=== PATIENT | female | born 1960 | race Caucasian/White ===

== ENCOUNTER 2018-07-26 07:53 | Emergency (ER) | payer SELFPAY ==
[2018-07-26 07:55] VITALS: BP 150/71; PULSE 84; RESP 12; TEMP 36.6; O2SAT 96; BMI 25.3
--- NOTE | 2018-07-26 08:32 | CT_ITS ---
STUDY: CT ABDOMEN AND PELVIS WITH CONTRAST REASON FOR EXAM: Female, 57 years old. Right upper quadrant pain. Nausea. RADIATION DOSAGE (If Supplied By Facility): CTDIvol = ( 11.39 ) mGy, DLP = ( 463.63 ) mGycm TECHNIQUE: Transaxial images were obtained from the dome of the diaphragm to the symphysis pubis without oral contrast. Isovue 300 100 IV was administered. Sagittal and coronal images were reconstructed. Individualized dose optimization techniques were used for this CT. COMPARISON: Comparison is made with prior examination dated November 21, 2013. FINDINGS: The visualized lung bases are unremarkable. The visualized portions of the heart are within normal limits. Stable 1.9 cm cyst in the right lobe of the liver. Normal gallbladder and extrahepatic biliary system. Normal spleen. Normal pancreas. There is a small, circumscribed, smooth, low attenuation left adrenal mass, consistent with an adrenal adenoma. This measures 1.5 cm. Normal right adrenal gland. Normal right kidney. Normal left kidney. Normal visualized stomach. Normal small intestine. Diverticula are also seen in the transverse colon. Mild increased markings in the surrounding peritoneal fat in the region of the transverse mesocolon. This may represent a mild degree of the diverticulitis at that site. There are multiple sigmoid diverticula consistent with diverticulosis. The appendix is visualized and appears normal. Normal abdominal aorta. Normal inferior vena cava. There is borderline retroperitoneal lymphadenopathy with enlarged nodes no greater than 10mm in the short axis diameter. Normal urinary bladder. There is absence of the uterus consistent with a prior hysterectomy. There is a small umbilical hernia containing fat. Normal osseous structures. CT/Abdomen/Pelvis W IV Cont ONLY IMPRESSION: Stable right hepatic cyst. Diverticula are seen in the region of the transverse colon with increased markings in the mesenteric fat suggestive of diverticulitis at that site. Electronically Signed: Dc Dotson, at 10:46 EST , Service support ,
--- NOTE | 2018-07-26 08:33 | ED.VISSUMM ---
- ER Visit Summary Date of Service: 07/26/18 Chief Complaint: Right flank pain History of Present Illness: The patient is a 57 F reported history of ulcerative colitis. Prior hysterectomy. Patient states since last evening she gradual onset of sharp stabbing right flank pain along her side underneath her rib cage. Denies any trauma. No fever. She does have nausea but no vomiting or diarrhea. No dysuria or melena. Nothing specifically makes the pain better or worse. It is not associated with food. She said she had this pain before but the last time she had it was around 15 years ago. She is never had any history of gallbladder disease nor any kidney stones. Physical Examination: Middle-aged female no acute distress. Vital signs are stable and afebrile. H EENT exam unremarkable. Neck nontender. Lungs clear to auscultation bilaterally. Heart regular rhythm no murmur. Abdomen is soft. She is tender on the right flank and mildly in the right upper quadrant. No Byrnes sign. No McBurney's point tenderness at all. There is no right lower quadrant tenderness. Left side of her abdomen is nontender. Nondistended normal bowel sounds no peritoneal signs. No hernias or masses. No signs of obstruction. No signs of trauma. She is moving all 4 extremities. Neurovascular intact. Back is nontender. Neurologically she is awake alert with no focal motor deficits. Test Results: UA: 0.5. Hemoglobin 14. No bands. Chemistries unremarkable normal creatinine gap. Liver enzymes normal. Lipase normal. UA macro is negative waiting for the micro. No nitrites. CT abdomen pelvis IV contrast shows transverse diverticulitis. Stable right hepatic cyst. Appendix is seen and normal. Discussed all test results with the patient and her significant other in the room. Emergency Department Course and Treatment: Patient was offered but did not want anything for pain or nausea at this time. Her prior history was secondary to colitis or ulcerative colitis. She will undergo a CT and the appropriate labs. She will receive a liter of normal saline. Treatment Plan: First dose of Cipro and Flagyl p.o. here in the ER. 10 days of each. Chayae has no primary care physician she will be referred to Dr. Luna. Disposition: dc Impression: Acute right upper quadrant abdominal pain secondary to transverse diverticulitis This note was generated with [employer] software. It may contain incorrect words, spelling, and punctuation that were not noted in review of the chart prior to signing ED Disposition - Plan for ED Patient: Referrals: Sara Cain MD [STAFF PHYSICIAN] -
[2018-07-26 09:06] VITALS: BP 139/62; PULSE 84; RESP 16; O2SAT 98
[2018-07-26] MEDS: 0.9% Normal Saline 1,000 ML 1000 ML IV (09:06)
[2018-07-26 09:07] LABS: Absolute Lymphocyte Count 2.08 X10^3/ul (0.83-4.51); Absolute Neutrophil Count 8.9 X10^3/uL (2.0-7.7); Basophil# 0.02 X10^3/uL; Basophil% 0.2 % (0-1); Eosinophil# 0.05 X10^3/uL; Eosinophils% 0.4 % (0-5); Hematocrit 46.1 % (37-47); Hemoglobin 14.5 g/dl (12.0-15.0); Lymphocyte # 2.08 X10^3/ul (4.0); Mean Corp Hgb Conc 31.5 g/gl (32-36); Mean Corpuscular Hgb 28.9 pg (27.0-32.0); Mean Corpuscular Volume 91.8 fL (81-99); Mean Platelet Vol. 9.8 fl (6.2-12.0); Monocyte# 0.45 X10^3/uL; Monocyte% 3.9 % (0-10); Neutrophil # 8.91 X10^3/uL (2.7-7.7); Neutrophil % 77.3 % (47-70); Platelet Count 299 K/mm3 (150-450); RBC Distribution Width CV 14.5 % (11.6-14.6); RBC Distribution Width SD 48.9 fl (35.1-43.9); Red Blood Count 5.02 M/mm3 (4.2-5.4); White Blood Count 11.5 K/mm3 (4.4-11.0)
[2018-07-26 09:13] LABS: POSITIVE COUNT NO; POSITIVE DIFFERENTIAL NO; POSITIVE MORPHOLOGY NO
[2018-07-26 09:18] LABS: AST(SGOT) 17 U/L (15-37); Alanine Aminotransfer ALT/SGPT 20 U/L (13-56); Albumin, Serum 4.1 g/dL (3.2-5.0); Alkaline Phosphatase 76 U/L (45-117); Anion Gap 5 (5-15); BUN 14 mg/dL (7-18); BUN/Creat Ratio 20.3 RATIO (10-20); Bilirubin, Direct 0.14 mg/dL (0.00-0.30); Calcium,Total 8.8 mg/dL (8.5-10.1); Chloride 108 mmol/L (98-107); Creatinine, Serum 0.69 mg/dL (0.55-1.02); EST Glomerular Filtration Rate 93 mL/min (>60); Est Glom Filt Rate - Afr Amer 113 mL/min (>60); Estimated Creatinine Clearance 80.95 ml/min; Globulin 4.1 g/dL (2.2-4.2); Glucose 89 mg/dL (74-106); Lipase 111 U/L (73-393); Potassium 3.7 mmol/L (3.5-5.1); Protein, Total 8.2 g/dL (6.4-8.2); Sodium Level 140 mmol/L (136-145)
[2018-07-26 10:40] LABS: Bacteria 0 SEEN /hpf (None Seen); Mucous, Urine 0 SEEN /hpf (<or=2+); Red Blood Cells-Urine 0 SEEN /hpf (0-5)
[2018-07-26 10:43] LABS: Color, Urine Yellow (Yellow); Glucose, Dipstick Normal (Normal); Ketone-Dipstick Negative (Negative); Leukocyte Esterase-Dipstick 25 /ul (Negative); Nitrite-Dipstick Negative (Negative); Occult Blood-Urine Negative /ul (Negative); Protein-Dipstick Negative (Negative); Urine Bilirubin Dipstick Negative (Negative); Urine Clarity Sl. Cloudy (Clear); Urine Urobilinogen Normal (Normal); Urine pH 6.5 (5.0 - 8.0)
--- NOTE | 2018-07-26 10:54 | ED.DEP ---
ED Disposition - Plan for ED Patient: Disposition: Home or Assisted Living Instructions: ED Diverticulitis Prescriptions: Ciprofloxacin [Cipro] 500 mg PO BID #20 tab Metronidazole [Flagyl] 500 mg PO Q6H #40 tab Referrals: Zach Luna MD [STAFF PHYSICIAN] - 3-5 Days Additional Instructions: And Motrin for pain. Cipro 1 pill twice a day for 10 days. Flagyl 1 pill 4 times a day for 10 days. Do not drink any alcohol while using the Flagyl. Follow-up with Dr. Zach Luna for a local primary care physician or return to the ER if you are feeling worse.
[2018-07-26 10:55] LABS: Squamous Epithelial Cells - UA 0-5 SEEN /hpf (5-10); White Blood Cells 0-5 SEEN /hpf (0-5)
[2018-07-26] MEDS: metroNIDAZOLE 500 MG Tablet PO (11:12)
[2018-07-26] MEDS: Ondansetron 4 MG/2 ML Vial IV (11:12)
[2018-07-26] MEDS: Ketorolac 30 MG/ML Syringe IV (11:12)
[2018-07-26] MEDS: Ciprofloxacin 250 MG Tablet 500 MG PO (11:18)
[2018-07-26 11:21] VITALS: BP 133/74; PULSE 62; RESP 15; O2SAT 98
== END 2018-07-26 11:25 | disposition home or self-care (01) ==
PROVIDERS: Emergency Provider Emergency Medicine
DX: K57.32 Diverticulitis of large intestine without perforation or abscess without bleeding (principal); R10.11 Right upper quadrant pain; Z72.0 Tobacco use
CPT/HCPCS: 74177; 80048; 80076; 81001; 83690; 85025; 96361; 96374; 96375; 99285; J7030; Q9967; A4216; J2405

== ENCOUNTER → 2018-07-29 14:39 | Outpatient (CLI) | payer SELFPAY ==
[2018-07-26 07:55] VITALS: BMI 25.3
[2018-07-29 16:43] LABS: T4 Free Direct 0.72 ng/dL (0.76-1.46); Thyroid Stim Hormone (TSH) 7.98 uIU/mL (0.358-3.74)
[2018-08-08 09:07] LABS: Anti-Thyroglobulin AB 48.2 IU/mL (0.0-0.9); Thyroglobulin RIA 15 ng/mL (.); Thyroid Peroxidase AB 224 IU/mL (0-34)
== END ==
LOC: MFPLAB 14:40
PROVIDERS: Family Provider Family Medicine; PCP Family Medicine; Referring Provider Family Medicine; Visit Provider Family Medicine
DX: E03.9 Hypothyroidism, unspecified (principal)
CPT/HCPCS: 36415; 84432; 84439; 84443; 86376; 86800

== ENCOUNTER 2018-07-31 06:17 | Observation (INO) | payer SELFPAY ==
[2018-07-31 06:19] VITALS: BP 160/78; PULSE 56; RESP 14; TEMP 36.4; O2SAT 98; BMI 29.5
--- NOTE | 2018-07-31 06:31 | CT_ITS ---
STUDY: CT ABDOMEN AND PELVIS WITH CONTRAST REASON FOR EXAM: Female, 57 years old. Diverticulitis RADIATION DOSAGE (If Supplied By Facility): CTDIvol = ( 15.09 ) mGy, DLP = ( 871.60 ) mGycm TECHNIQUE: Transaxial images were obtained from the dome of the diaphragm to the symphysis pubis without oral contrast. Isovue 300 100ML IV was administered. Sagittal and coronal images were reconstructed. Individualized dose optimization techniques were used for this CT. COMPARISON: 07/26/2018 FINDINGS: The visualized lung bases are unremarkable. The visualized portions of the heart are within normal limits. Hepatomegaly. Normal gallbladder and extrahepatic biliary system. Normal spleen. Normal pancreas. Stable left adrenal adenomas. Normal right kidney. Normal left kidney. Normal visualized stomach. Normal small intestine. There are multiple colonic diverticula consistent with diverticulosis. Constipation. The appendix is visualized and appears normal. Normal abdominal aorta. Normal inferior vena cava. Normal retroperitoneum. Normal urinary bladder. Normal abdominal wall. Normal osseous structures. CT/Abdomen/Pelvis W IV Cont ONLY IMPRESSION: No evidence of acute intestinal pathology or acute obstructive uropathy. No evidence of acute diverticulitis. Constipation. Electronically Signed: Jamal Mackay MD at 7:39 EST Tel , Service support ,
[2018-07-31] MEDS: Ondansetron 4 MG/2 ML Vial IV (06:40)
[2018-07-31] MEDS: 0.9% Normal Saline 1,000 ML 1000 ML IV (06:40)
[2018-07-31 06:41] LABS: Absolute Lymphocyte Count 1.86 X10^3/ul (0.83-4.51); Absolute Neutrophil Count 8.3 X10^3/uL (2.0-7.7); Basophil# 0.04 X10^3/uL; Basophil% 0.4 % (0-1); Eosinophil# 0.23 X10^3/uL; Eosinophils% 2.1 % (0-5); Hematocrit 44.3 % (37-47); Lymphocyte # 1.86 X10^3/ul (4.0); Lymphocyte % 16.7 % (19-41); Mean Corp Hgb Conc 31.6 g/gl (32-36); Mean Corpuscular Hgb 29.2 pg (27.0-32.0); Mean Corpuscular Volume 92.5 fL (81-99); Mean Platelet Vol. 10.2 fl (6.2-12.0); Monocyte# 0.72 X10^3/uL; Monocyte% 6.4 % (0-10); Neutrophil % 74.2 % (47-70); Platelet Count 294 K/mm3 (150-450); RBC Distribution Width CV 14.6 % (11.6-14.6); RBC Distribution Width SD 48.1 fl (35.1-43.9); Red Blood Count 4.79 M/mm3 (4.2-5.4); White Blood Count 11.2 K/mm3 (4.4-11.0)
[2018-07-31] MEDS: Morphine 4 MG/ML Syringe IV ×2 (06:41→07:18)
[2018-07-31 06:44] LABS: POSITIVE COUNT NO; POSITIVE DIFFERENTIAL NO; POSITIVE MORPHOLOGY NO
[2018-07-31 06:49] LABS: Anion Gap 8 (5-15); BUN 11 mg/dL (7-18); Calcium,Total 9.1 mg/dL (8.5-10.1); Chloride 109 mmol/L (98-107); Creatinine, Serum 0.78 mg/dL (0.55-1.02); EST Glomerular Filtration Rate 80 mL/min (>60); Est Glom Filt Rate - Afr Amer 97 mL/min (>60); Estimated Creatinine Clearance 60.05 ml/min; Glucose 104 mg/dL (74-106); Sodium Level 143 mmol/L (136-145)
--- NOTE | 2018-07-31 06:54 | ED.VISSUMM ---
- ER Visit Summary Date of Service: 07/31/18 Chief Complaint: Abdominal and flank pain History of Present Illness: The patient is a 57 F who presents with abdominal and flank pain. Patient has had pain in the right upper quadrant and flank for 1 week. She was seen in the emergency department [address] imaging showed transverse diverticulitis. She was discharged on Cipro and Flagyl. She had transient improvement in symptoms and actually felt pretty good yesterday. However about 3 hours before presentation here her pain acutely worsened. She reports nausea without vomiting. She also developed some watery diarrhea this morning. No fevers. Physical Examination: Afebrile vitals unremarkable Patient does appear uncomfortable Moist mucous membranes Heart regular rate and rhythm Lungs are clear The abdomen is soft but she is tender to palpation in the right upper quadrant there is no guarding there is no rebound Alert Test Results: Labs notable for white blood cell count 11.2. CT of the abdomen and pelvis is pending at the time of this dictation. Emergency Department Course and Treatment: Patient was recently diagnosed with transverse diverticulitis and had acute worsening of pain at this morning. I am concerned for possible complications including perforation. At the time of this dictation CT is pending. Patient will be signed out to the oncoming physician for follow-up on this result. Patient was given IV morphine and Zofran here. On reevaluation she does have moderate improvement but still complains of 6 out of 10 pain and was given a second dose of morphine. Treatment Plan: [] Disposition: [] Impression: [] This note was generated with [employer] dictation software. It may contain incorrect words, spelling, and punctuation that were not noted in review of the chart prior to signing <Lb Lozoya - Last Filed: 07/31/18 06:54> - ER Visit Summary Date of Service: 07/31/18 Chief Complaint: [] History of Present Illness: The patient is a 57 F [] Physical Examination: [] Test Results: [] Emergency Department Course and Treatment: Patient was signed out to me pending CAT scan. It shows constipation with no evidence of free air or perforation. There is no signs of diverticulitis. Upon reevaluation she is still having pain even after the second dose of morphine. Patient states that she is unable to go home. I feel she is able to be admitted to observation. I discussed with hospitalist and with the patient. Patient will be admitted to the hospital under observation status for abdominal pain Treatment Plan: [] Disposition: Admit Impression: Abdominal pain, constipation This note was generated with [employer] dictation software. It may contain incorrect words, spelling, and punctuation that were not noted in review of the chart prior to signing <Eric Marcum - Last Filed: 07/31/18 08:28> ED Disposition <Lb Lozoya - Last Filed: 07/31/18 06:54> <Eric Marcum - Last Filed: 07/31/18 08:28> - Plan for ED Patient: Referrals: Zach Luna MD [Primary Care Provider] -
[2018-07-31 07:46] VITALS: BP 142/74; PULSE 74; RESP 16; O2SAT 96
--- NOTE | 2018-07-31 08:41 | NURSING ---
306 ANISHA ABD PAIN
[2018-07-31 09:08] VITALS: BMI 28.9
[2018-07-31 09:21] VITALS: BP 130/73; PULSE 59; RESP 14; TEMP 36.6; O2SAT 95
[2018-07-31] MEDS: Electrolyte Solution/Peg's 4000 ML 2000 ML PO (11:02)
[2018-07-31] MEDS: 0.9% Normal Saline 1,000 ML 100 ML IV ×2 (11:02→20:25)
--- NOTE | 2018-07-31 11:47 | HP.PCM_ITS ---
Problem List (1) Constipation Status: Acute History of Present Illness Date of Admission: 07/31/18 Chief Complaint: Abdominal pain The patient is a 57 year old F with PMH as below who was recently discharged from the ER with diverticulitis. She was sent home with Cipro/Flagyl for 10 days and has improved significantly up until this morning where she had significant abdominal pain. She has been having loose stools while at home, however when she presented to the ER a CT scan was done that showed significant constipation with fecalization in the small bowel. There does not appear to be any obstruction on the CT scan. Her labs were unremarkable. Of note she has noticed that she has become more distended in her abdomen. Past Medical History Allergies venom-honey bee [bee venom (honey bee)] Allergy (Verified 07/31/18 06:25) Swelling Home Medications: Ambulatory Orders Medication Instructions Recorded Ciprofloxacin [Cipro] 500 mg PO BID #20 tab 07/26/18 Metronidazole [Flagyl] 500 mg PO Q6H #40 tab 07/26/18 Surgical History: - - section 5 Smoking Status: Current some day smoker Tobacco Use: Cigarettes Alcohol: None Drugs: None - *Family History Maternal History Items: No pertinent history Paternal History Items: No pertinent history Review of Systems Constitutional: Denies: Chills, Fever, Weight Change HEENT: Denies: Head Aches, Sinus Congestion, Sinus Drainage Cardiovascular: Denies: Chest Pain, Palpitations Respiratory: Denies: Cough, Shortness of breath at rest, Sputum production Gastrointestinal: Reports: Abdominal Pain, Diarrhea. Denies: Nausea, Vomiting Genitourinary: Denies: Dysuria Musculoskeletal: Denies: Joint Pain, Joint Tenderness Skin: Denies: Rash, Wounds Neurological: Denies: Numbness, Tingling, Focal weakness Psychiatric: Denies: Anxiety, Depression, Homicidal Ideations, Suicidal Ideations Hematologic/ Lymphatic: Denies: Easy Bruising, Easy Bleeding VTE Information - Inpt Only VTE Present on Admission: No Patient Problems: Active and Suspected Problems Constipation (Acute) - Physical Exam General: Alert, Oriented x3, Cooperative, No apparent distress HEENT: Atraumatic, PERRLA, EOMI, Normocephalic Oral: Moist Mucosa Neck: Supple, No JVD, Trachea Midline Lungs: Clear to auscultation, Normal air movement, No rhonchi, No wheeze, No rales Cardiovascular: Regular rate, Regular Rhythm, Normal S1, Normal S2, No murmurs Abdomen: Soft, No Hepato-splenomegaly, Distended - Mild, Tender - Lightly tender Extremities: No edema, Capillary Refill Less than 3 Seconds Skin: No rashes, No breakdown Neurological: Neuro grossly intact, Sensory exam intact to light touch and pain Psych/Mental Status: Normal Affect, Appropriate Vital Signs Temp Pulse Resp BP Pulse Ox 97.8 F 59 L 14 130/73 H 95 07/31/18 09:21 07/31/18 09:21 07/31/18 09:21 07/31/18 09:21 07/31/18 09:21 Oxygen Delivery Method Room Air Weight: 153 lb 0.013 oz Body Mass Index (BMI) 28.9 Laboratory Tests Past 24 Hrs 07/31/18 07/31/18 06:28 06:28 WBC 11.2 H RBC 4.79 Hgb 14.0 Hct 44.3 MCV 92.5 MCH 29.2 MCHC 31.6 L RDW 14.6 RDW Differential 48.1 H Plt Count 294 MPV 10.2 Immature Gran % (Auto) 0.200 Neut % (Auto) 74.2 H Lymph % (Auto) 16.7 L [place] % (Auto) 6.4 Eos % (Auto) 2.1 Baso % (Auto) 0.4 Absolute Neuts (auto) 8.3 H Absolute Lymphs (auto) 1.86 Total Counted Not Reportable Sodium 143 Potassium 4.0 Chloride 109 H Carbon Dioxide 26.0 Anion Gap 8 BUN 11 Creatinine 0.78 Estim Creat Clear Calc 60.05 Est GFR (MDRD) Af Amer 97 Est GFR (MDRD) Non-Af 80 BUN/Creatinine Ratio 14.0 Glucose 104 Calcium 9.1 Assessment/Plan All Active Problems Constipation (Acute) 1. Constipation -Based on her CT scan and her history we will plan to treat with GoLYTELY and MiraLAX -Plan for discharge tomorrow -No narcotics -Tylenol for pain as needed -He is only taken 5 days of her Cipro and Flagyl therefore will continue IV DVT: Heparin Code Visit OBSV E&M: 14647 Initial observation care L2
[2018-07-31] MEDS: Heparin Injection (Vial) 5,000 UNIT/ML VIAL 5000 UNIT SC ×2 (14:54→21:09)
[2018-07-31 15:20] VITALS: BP 136/65; PULSE 68; RESP 16; TEMP 36.6; O2SAT 99
[2018-07-31 20:17] VITALS: BP 122/61; PULSE 72; RESP 16; TEMP 37; O2SAT 95
[2018-07-31] MEDS: Polyethylene Glycol 3350 17 GM PACKET PO (21:09)
[2018-07-31] MEDS: Ciprofloxacin 400 MG/200 ML BAG 200 MG IV (22:23)
[2018-08-01 03:15] VITALS: BP 133/62; PULSE 70; RESP 16; TEMP 36.6; O2SAT 97
[2018-08-01] MEDS: Heparin Injection (Vial) 5,000 UNIT/ML VIAL 5000 UNIT SC (05:14)
[2018-08-01 05:39] LABS: Absolute Lymphocyte Count 1.62 X10^3/ul (0.83-4.51); Absolute Neutrophil Count 8.6 X10^3/uL (2.0-7.7); Basophil# 0.03 X10^3/uL; Basophil% 0.3 % (0-1); Eosinophil# 0.22 X10^3/uL; Hematocrit 42.7 % (37-47); Hemoglobin 13.3 g/dl (12.0-15.0); Lymphocyte # 1.62 X10^3/ul (4.0); Lymphocyte % 14.6 % (19-41); Mean Corp Hgb Conc 31.1 g/gl (32-36); Mean Corpuscular Hgb 29.4 pg (27.0-32.0); Mean Corpuscular Volume 94.5 fL (81-99); Mean Platelet Vol. 10.6 fl (6.2-12.0); Monocyte# 0.64 X10^3/uL; Monocyte% 5.8 % (0-10); Neutrophil # 8.56 X10^3/uL (2.7-7.7); Neutrophil % 77.1 % (47-70); Platelet Count 248 K/mm3 (150-450); RBC Distribution Width CV 14.8 % (11.6-14.6); RBC Distribution Width SD 49.8 fl (35.1-43.9); Red Blood Count 4.52 M/mm3 (4.2-5.4); White Blood Count 11.1 K/mm3 (4.4-11.0)
[2018-08-01 05:44] LABS: POSITIVE COUNT NO; POSITIVE DIFFERENTIAL NO; POSITIVE MORPHOLOGY NO
[2018-08-01 05:49] LABS: Anion Gap 8 (5-15); BUN 10 mg/dL (7-18); BUN/Creat Ratio 15.3 RATIO (10-20); Calcium,Total 8.4 mg/dL (8.5-10.1); Chloride 111 mmol/L (98-107); Creatinine, Serum 0.65 mg/dL (0.55-1.02); EST Glomerular Filtration Rate 99 mL/min (>60); Est Glom Filt Rate - Afr Amer 120 mL/min (>60); Estimated Creatinine Clearance 72.06 ml/min; Glucose 95 mg/dL (74-106); Potassium 4.2 mmol/L (3.5-5.1); Sodium Level 143 mmol/L (136-145)
[2018-08-01 08:00] VITALS: BP 136/74; PULSE 60; RESP 14; TEMP 36.7; O2SAT 94
[2018-08-01] MEDS: Ciprofloxacin 400 MG/200 ML BAG 200 MG IV (09:40)
--- NOTE | 2018-08-01 11:03 | DCINST_ITS ---
- Discharge Diagnoses Current Active Problems: Current Active and Chronic Problems Constipation (Acute) You will use the following diet at home:: Regular Your food should be the consistency of: Regular Your liquids should be the consistency of: Regular/Thin Discharge Activity: Return to Normal Activity, No Restrictions Call your doctor if you observe: Fever of 101 or Higher, Shortness of breath, Dizziness, Fainting spells, Swelling in the ankles, Chest pain, Increased palpitations (irregular heartbeat) Allergies/Adverse Reactions: Allergies venom-honey bee [bee venom (honey bee)] Allergy (Verified 07/31/18 06:25) Swelling Medications to take at Discharge Ciprofloxacin [Cipro] 500 mg PO BID #20 tab 07/26/18 Metronidazole [Flagyl] 500 mg PO Q6H #40 tab 07/26/18 Polyethylene Glycol 3350 [Miralax] 17 gm PO DAILY #12 packet 08/01/18 The following prescriptions were given: Polyethylene Glycol 3350 [Miralax] 17 gm PO DAILY #12 packet Primary Care Physician: Zach Luna MD [Primary Care Provider] - Please follow up with your Primary Care Physician in: 3-5 days Test Results: Test results from this visit will be discussed in further detail at your follow- up appointment, if applicable.
--- NOTE | 2018-08-01 11:07 | DS.PCM_ITS ---
Discharge Date and Diagnosis - Problem List Patient Problems: Active and Suspected Problems Constipation (Acute) Date of Admission: 07/31/18 Date of Discharge: 08/01/18 - Primary Discharge Diagnosis Active and Suspected Problems Constipation (Acute) Hospital Course and Treatment Imaging Results: CT abd/pelvis: IMPRESSION: No evidence of acute intestinal pathology or acute obstructive uropathy. No evidence of acute diverticulitis. Constipation. Consults: None Operations: None Procedures: None Summary of Care Provided: HPI: The patient is a 57 year old F with PMH as below who was recently discharged from the ER with diverticulitis. She was sent home with Cipro/Flagyl for 10 days and has improved significantly up until this morning where she had significant abdominal pain. She has been having loose stools while at home, however when she presented to the ER a CT scan was done that showed significant constipation with fecalization in the small bowel. There does not appear to be any obstruction on the CT scan. Her labs were unremarkable. Of note she has noticed that she has become more distended in her abdomen. Hospital Course: 1. [id number] female with no prior medical history presenting after 5 days of treatment with diverticulitis. She had a CT scan in the ER which was negative for continued diverticulitis however she did have constipation with stool formation in her small bowel. She was initiated on GoLYTELY and MiraLAX and she has had multiple bowel movements and says that her abdominal distention is much improved and her pain has resolved completely. She will be discharged home with MiraLAX daily and she can finish her antibiotics at home for her diverticulitis. Do recommend that she follows up with her primary care doctor in 3-5 days. Patient Problems: Active and Suspected Problems Constipation (Acute) Objective: General: Alert, Oriented x3, Cooperative, No apparent distress HEENT: Atraumatic, PERRLA, EOMI, Normocephalic Oral: Moist Mucosa Neck: Supple, No JVD, Trachea Midline Lungs: Clear to auscultation, Normal air movement, No rhonchi, No wheeze, No rales Cardiovascular: Regular rate, Regular Rhythm, Normal S1, Normal S2, No murmurs Abdomen: Soft, nontender, no Hepato-splenomegaly, non-distended Extremities: No edema, Capillary Refill Less than 3 Seconds Skin: No rashes, No breakdown Neurological: Neuro grossly intact, Sensory exam intact to light touch and pain Psych/Mental Status: Normal Affect, Appropriate - Physical Exam Vital Signs Temp Pulse Resp BP Pulse Ox 98.0 F 60 14 136/74 H 94 08/01/18 08:00 08/01/18 08:00 08/01/18 08:00 08/01/18 08:00 08/01/18 08:00 Oxygen Delivery Method Room Air Weight: 153 lb 0.013 oz Body Mass Index (BMI) 28.9 Intake and Output for Last 24 Hours 07/30/18 07/31/18 08/02/18 23:59 23:59 00:59 Intake Total 2715 / 2715 1332 / 1332 Balance 2715 / 2715 1332 / 1332 Laboratory Tests Past 24 Hrs 08/01/18 08/01/18 05:00 05:00 WBC 11.1 H RBC 4.52 Hgb 13.3 Hct 42.7 MCV 94.5 MCH 29.4 MCHC 31.1 L RDW 14.8 H RDW Differential 49.8 H Plt Count 248 MPV 10.6 Immature Gran % (Auto) 0.200 Neut % (Auto) 77.1 H Lymph % (Auto) 14.6 L [place] % (Auto) 5.8 Eos % (Auto) 2.0 Baso % (Auto) 0.3 Absolute Neuts (auto) 8.6 H Absolute Lymphs (auto) 1.62 Total Counted Not Reportable Sodium 143 Potassium 4.2 Chloride 111 H Carbon Dioxide 24.0 Anion Gap 8 BUN 10 Creatinine 0.65 Estim Creat Clear Calc 72.06 Est GFR (MDRD) Af Amer 120 Est GFR (MDRD) Non-Af 99 BUN/Creatinine Ratio 15.3 Glucose 95 Calcium 8.4 L Discharge Activity: Return to Normal Activity, No Restrictions Call your doctor if you observe: Fever of 101 or Higher, Shortness of breath, Dizziness, Fainting spells, Swelling in the ankles, Chest pain, Increased palpitations (irregular heartbeat) Home Medications: Medications to take at Discharge Ciprofloxacin [Cipro] 500 mg PO BID #20 tab 07/26/18 Metronidazole [Flagyl] 500 mg PO Q6H #40 tab 07/26/18 Polyethylene Glycol 3350 [Miralax] 17 gm PO DAILY #12 packet 08/01/18 Following Prescrptions Were Given to Patient: Polyethylene Glycol 3350 [Miralax] 17 gm PO DAILY #12 packet Primary Care Physician: Zach Luna MD [Primary Care Provider] - Please follow up with your Primary Care Physician in: 3-5 days Disposition: Home Minutes spent on discharge:: 35 Patient Condition:: Good Medical Necessity - Tobacco Use Smoking Status: Current some day smoker Tobacco Use: Cigarettes Meaningful Use Info Meaningful Use Diagnoses (Choose all that apply): None applicable Code Visit OBSV E&M: 52448 Observation care discharge
== END 2018-08-01 12:15 | disposition home or self-care (01) ==
LOC: ED 06:34 → MS3 08-02 08:23
PROVIDERS: Admitting Provider Family Medicine; Emergency Provider Emergency Medicine; Family Provider Family Medicine; PCP Family Medicine; Visit Provider Family Medicine
DX: K59.00 Constipation, unspecified (principal); K57.32 Diverticulitis of large intestine without perforation or abscess without bleeding; F17.210 Nicotine dependence, cigarettes, uncomplicated; K51.90 Ulcerative colitis, unspecified, without complications
CPT/HCPCS: 36415; 74177; 80048; 85025; 96361; 96365; 96366; 96367; 96372; 96375; 96376; 97802; 99218; 99282; J7030; Q9967; A4216; G0378; J0744; J2405

== ENCOUNTER → 2018-08-04 12:53 | Outpatient (CLI) | payer SELFPAY ==
[2018-07-26 07:55] VITALS: BMI 25.3
[2018-07-31 09:08] VITALS: BMI 28.9
--- NOTE | 2018-08-04 13:43 | US_ITS ---
STUDY: THYROID ULTRASOUND REASON FOR EXAM: Female, 57 years old. Nodule. TECHNIQUE: Ultrasound evaluation of the thyroid was performed with real-time and static orr-scale imaging. COMPARISON: None. FINDINGS: RIGHT LOBE: The right lobe of the thyroid gland measures 4.3 x 1.9 x 1.5 cm. There is a heterogeneous echotexture. There is a 1.3 x 0.9 x 1.1 cm isoechoic nodule in the lateral mid thyroid. There is evidence of internal and peripheral vascularity on Doppler imaging. LEFT LOBE: The left lobe of the thyroid gland measures 4.2 x 2.2 x 1.9 cm. There is a heterogeneous echotexture. There are no demonstrated solid, cystic or complex lesions. Normal vascularity on Doppler imaging. ISTHMUS: The isthmus measures 0.4 cm. The regional lymph nodes are normal. US/Thyroid IMPRESSION: Nodule in the right thyroid. Under the ACR TIRADS classification this nodule would be scored as a TR 3, mildly suspicious. It should be followed up in 1, 3 and 5 year intervals. Electronically Signed: Ankit Cutler DO at 16:01 EDT Tel [phone], Service support ,
== END ==
PROVIDERS: Family Provider Family Medicine; PCP Family Medicine; Referring Provider Family Medicine; Visit Provider Family Medicine
DX: E04.1 Nontoxic single thyroid nodule (principal)
CPT/HCPCS: 76536

== ENCOUNTER → 2018-08-06 10:15 | Outpatient (CLI) | payer SELFPAY ==
[2018-07-31 09:08] VITALS: BMI 28.9
[2018-08-15 08:15] LABS: Anti-Thyroglobulin AB 52.5 IU/mL (0.0-0.9); Thyroglobulin RIA 8.4 ng/mL (.); Thyroid Peroxidase AB 269 IU/mL (0-34)
== END ==
LOC: MFPLAB 10:15
PROVIDERS: Family Provider Family Medicine; PCP Family Medicine; Referring Provider Family Medicine; Visit Provider Family Medicine
DX: E03.9 Hypothyroidism, unspecified (principal)
CPT/HCPCS: 36415; 84432; 86376; 86800

== ENCOUNTER → 2018-08-17 11:43 | Outpatient (CLI) | payer SELFPAY ==
[2018-07-31 09:08] VITALS: BMI 28.9
--- NOTE | 2018-08-17 07:30 | ASPS_PTH ---
PATIENT: CASSI SCHMITT LOC: [facility] U#:[id number] AGE/SX: 64/F ROOM: RE08/17/[address]: Dr. Cecil Layne MD : 1960 BED: DIS: SPEC #: [id number] RECD: 08/17/18 11:05 STATUS: ONOFRE TONYA #: [id number] RAYMUNDO: 08/17/18 07:[address]: Cecil Layne DEPT: CYTOLOGY RECD BY: Mercedez Kramer ENTERED: 08/17/18 15:02 SP TYPE: ASPIRATION OTHR DR: Dr. Zach Luna MD Tissues: Thyroid gland, NOS Procedures: Special Stain Group II Cytology Other HEADER OPERATION: Ultrasound-guided fine needle aspiration right thyroid PRE-OP DIAGNOSIS: Uninodular goiter E04.1 TISSUE SUBMITTED: Fine needle aspiration right thyroid 12 slides DIAGNOSIS CYTOLOGY Right thyroid nodule, ultrasound-guided FNA (smears): Consistent with benign follicular nodule. Adequate for evaluation. SJ:nemesio 08/18/18 COMMENT Correlation with clinical, radiologic findings and appropriate follow up are necessary. CYTOLOGY STUDY Slides are reviewed. CYTOLOGY GROSS Received are 12 smears labeled with the patient's name and designated per the requisition as right thyroid. Submitted for staining. / 08/17/18 TC:5 CPT: 48896
== END ==
LOC: LABSPEC 11:44
PROVIDERS: Family Provider Family Medicine; PCP Family Medicine; Referring Provider Surgery; Visit Provider Surgery
DX: E04.1 Nontoxic single thyroid nodule (principal)
CPT/HCPCS: 88161; 88313

== ENCOUNTER → 2018-11-09 | Outpatient (CLI) | payer SELFPAY ==
[2018-08-17 08:44] VITALS: BMI 28.9
[2018-11-09 15:45] LABS: T4 Free Direct 0.88 ng/dL (0.76-1.46); Thyroid Stim Hormone (TSH) 2.51 uIU/mL (0.358-3.74)
== END | disposition home or self-care (01) ==
PROVIDERS: Family Provider Family Medicine; PCP Family Medicine; Referring Provider Family Medicine; Visit Provider Family Medicine
DX: E03.8 Other specified hypothyroidism (principal)
CPT/HCPCS: 36415; 84439; 84443

== ENCOUNTER → 2019-02-03 | Outpatient (CLI) | payer SELFPAY ==
[2018-08-17 08:44] VITALS: BMI 28.9
--- NOTE | 2019-02-03 14:25 | MRI_ITS ---
STUDY: MRI BRAIN WITH AND WITHOUT CONTRAST REASON FOR EXAM: Female, 58 years old. Severe headache. TECHNIQUE: Standardized multiplanar fat and water weighted pulse sequences were obtained. 13 IV Dotarem was administered for the contrast portion of the examination. COMPARISON: None. FINDINGS: No intracranial mass, mass effect, or midline shift. No enhancement following the administration of contrast. No hemorrhage, territorial infarct, or acute ischemia. Normal size of the ventricles and extra-axial spaces for the patient's age. Normal white matter tracts of the supratentorial brain. There is no extra-axial fluid accumulation. Normal flow voids within the major intracranial circulation suggesting patency by spin echo criteria. Normal sella turcica, pituitary gland, infundibular stalk, optic chiasm and hypothalamus. Normal basal cisterns. Normal bilateral temporal bones. Fluid level in the right maxillary sinus consistent with acute sinusitis. Mild mucosal thickening on the left. Normal calvarium and skull base. Normal visualized soft tissue structures. MRI/Brain W/WO Contrast IMPRESSION: Acute right maxillary sinusitis. Otherwise, negative study. Electronically Signed: Michelle Hobbs MD at 18:11 EDT Tel , Service support ,
[2019-02-03 14:56] LABS: Erythrocyte Sedimentation Rate 20 mm/hr (0-30)
== END | disposition home or self-care (01) ==
PROVIDERS: Family Provider Family Medicine; PCP Family Medicine; Referring Provider Family Medicine; Visit Provider Family Medicine
DX: R51 Headache (principal)
CPT/HCPCS: 36415; 70553; 85652; A9575

== ENCOUNTER → 2019-05-09 15:25 | Outpatient (CLI) | payer SELFPAY ==
[2018-08-17 08:44] VITALS: BMI 28.9
[2019-05-09 17:52] LABS: T4 Free Direct 0.93 ng/dL (0.76-1.46); Thyroid Stim Hormone (TSH) 3.13 uIU/mL (0.358-3.74)
== END ==
LOC: MFPLAB 15:25
PROVIDERS: Family Provider Family Medicine; PCP Family Medicine; Visit Provider Family Medicine
DX: E04.1 Nontoxic single thyroid nodule (principal)
CPT/HCPCS: 36415; 84439; 84443

== ENCOUNTER → 2019-12-20 | Outpatient (CLI) | payer SELFPAY ==
[2018-08-17 08:44] VITALS: BMI 28.9
[2019-12-20 17:47] LABS: Thyroid Stim Hormone (TSH) 2.04 uIU/mL (0.358-3.74)
== END | disposition home or self-care (01) ==
LOC: MFPLAB 15:08
PROVIDERS: PCP Family Medicine; Referring Provider Family Medicine; Visit Provider Family Medicine
DX: E03.8 Other specified hypothyroidism (principal)
CPT/HCPCS: 36415; 84443

== ENCOUNTER → 2020-01-02 12:15 | Outpatient (CLI) | payer SELFPAY ==
[2018-08-17 08:44] VITALS: BMI 28.9
--- NOTE | 2020-01-02 12:19 | US_ITS ---
STUDY: THYROID ULTRASOUND REASON FOR EXAM: Female, 59 years old. F/U NODULE ON THYROID MEDS TECHNIQUE: Ultrasound evaluation of the thyroid was performed with real-time and static orr-scale imaging. COMPARISON: None. FINDINGS: RIGHT LOBE: The right lobe of the thyroid gland measures 3.9 cm x 1.5 cm x 1.4 cm. There is a heterogeneous echotexture. There are no demonstrated solid, cystic or complex lesions. LEFT LOBE: The left lobe of the thyroid gland measures 3.9 cm x 1.7 cm x 1.4 cm. There is a heterogeneous echotexture. There are no demonstrated solid, cystic or complex lesions. ISTHMUS: The isthmus measures . The regional lymph nodes are normal. US/Thyroid IMPRESSION: Heterogeneous appearance of both lobes of the thyroid gland. No focal nodule is seen. Electronically Signed: Dc Dotson, at 13:37 EDT , Service support ,
== END ==
PROVIDERS: PCP Family Medicine; Referring Provider Family Medicine; Visit Provider Family Medicine
DX: E04.1 Nontoxic single thyroid nodule (principal)
CPT/HCPCS: 76536

== ENCOUNTER → 2020-07-05 13:38 | Outpatient (CLI) | payer SELFPAY ==
[2018-08-17 08:44] VITALS: BMI 28.9
[2020-07-05 13:41] LABS: Red Blood Cells-Urine 0 SEEN /hpf (0-5)
[2020-07-05 15:08] LABS: Absolute Lymphocyte Count 2.33 X10^3/uL (0.83-4.51); Absolute Neutrophil Count 6.1 X10^3/uL (2.0-7.7); Basophil# 0.05 X10^3/uL; Basophil% 0.5 % (0-1); Eosinophils% 2.1 % (0-5); Hematocrit 45.7 % (37-47); Hemoglobin 14.2 g/dL (12.0-15.0); Lymphocyte # 2.33 X10^3/ul (4.0); Lymphocyte % 24.5 % (19-41); Mean Corp Hgb Conc 31.1 g/dL (32-36); Mean Corpuscular Hgb 28.4 pg (27.0-32.0); Mean Corpuscular Volume 91.4 fL (81-99); Monocyte# 0.83 X10^3/uL; Monocyte% 8.7 % (0-10); NRBC Flagged by Analyzer 0 % (0-5); Neutrophil # 6.08 X10^3/uL (2.7-7.7); Neutrophil % 63.9 % (47-70); Platelet Count 314 K/mm3 (150-450); RBC Distribution Width CV 13.5 % (11.6-14.6); RBC Distribution Width SD 45.8 fl (35.1-43.9); White Blood Count 9.5 K/mm3 (4.4-11.0)
[2020-07-05 15:14] LABS: Color, Urine Yellow (Yellow); Glucose, Dipstick Normal (Normal); Ketone-Dipstick Negative (Negative); Leukocyte Esterase-Dipstick 25 /ul (Negative); Nitrite-Dipstick Negative (Negative); Occult Blood-Urine Negative /ul (Negative); Protein-Dipstick Negative (Negative); Urine Bilirubin Dipstick Negative (Negative); Urine Clarity Clear (Clear); Urine Urobilinogen 1 mg/dl (Normal)
[2020-07-05 15:28] LABS: AST(SGOT) 16 U/L (15-37); Alanine Aminotransfer ALT/SGPT 27 U/L (13-56); Alkaline Phosphatase 89 U/L (45-117); Anion Gap 3 (5-15); BUN 12 mg/dL (7-18); BUN/Creat Ratio 15.7 RATIO (10-20); Calcium,Total 8.8 mg/dL (8.5-10.1); Chloride 110 mmol/L (98-107); Creatinine, Serum 0.76 mg/dL (0.55-1.02); EST Glomerular Filtration Rate 82 mL/min (>60); Est Glom Filt Rate - Afr Amer 99 mL/min (>60); Glucose 62 mg/dL (74-106); Sodium Level 141 mmol/L (136-145); Thyroid Stim Hormone (TSH) 3.54 uIU/mL (0.358-3.74)
[2020-07-05 15:35] LABS: Squamous Epithelial Cells - UA 0-5 SEEN /hpf (5-10); White Blood Cells 0-5 SEEN /hpf (0-5)
[2020-07-05 15:36] LABS: Bacteria 0 SEEN /hpf (None Seen); Mucous, Urine RARE /hpf (<or=2+)
== END ==
LOC: MTLAB 13:40
PROVIDERS: PCP Family Medicine; Referring Provider Family Medicine; Visit Provider Family Medicine
DX: E03.8 Other specified hypothyroidism (principal); Z72.0 Tobacco use
CPT/HCPCS: 36415; 80053; 81001; 84443; 85025

== ENCOUNTER → 2020-09-03 12:26 | Outpatient (CLI) | payer SELFPAY ==
[2018-08-17 08:44] VITALS: BMI 28.9
--- NOTE | 2020-09-03 12:33 | BI_ITS ---
MAMMOGRAPHY - BILATERAL SCREENING REASON FOR EXAM: Female, 59 years old. Routine annual screening examination. PERTINENT HISTORY: Non-contributory. TECHNIQUE: Digital bilateral breast jules (3D mammographic acquisition) in the CC and MLO projections. 2-D mediolateral oblique (MLO) and craniocaudad (CC) views of both breasts were obtained. CAD: Full Field Digital Mammography with Computer Added Detection was performed. COMPARISON: No comparison mammograms available at this time. If any prior films become available, an addendum to this report can be generated. FINDINGS: Breast Composition: There are scattered areas of fibroglandular density. There are no dominant masses or suspicious calcifications. Small benign-appearing bilateral axillary No other significant abnormalities are identified. BI/SCRN MAMM (CAD)W/JULES BILAT IMPRESSION: Negative screening mammogram. Yearly followup mammogram recommended. (A) ASSESSMENT CATEGORY: BIRADS Category 2: Benign. A letter regarding these results will be sent to the patient by the facility within 30 days. Approximately 10% of breast cancers are not detected by mammography. A normal mammogram should not delay biopsy of a clinically suspicious abnormality. [id number] Electronically Signed: Dc Dotson MD at 14:11 EDT , Service support ,
== END ==
PROVIDERS: PCP Family Medicine; Referring Provider Family Medicine; Visit Provider Family Medicine
DX: Z12.31 Encounter for screening mammogram for malignant neoplasm of breast (principal)
CPT/HCPCS: 77063; 77067

== ENCOUNTER → 2021-02-06 14:33 | Outpatient (CLI) | payer SELFPAY ==
[2021-02-06 14:37] LABS: Bacteria 0 SEEN /hpf (None Seen); Mucous, Urine 0 SEEN /hpf (<or=2+); Red Blood Cells-Urine 0 SEEN /hpf (0-5)
[2021-02-06 17:50] LABS: Color, Urine Yellow (Yellow); Glucose, Dipstick Normal (Normal); Ketone-Dipstick Negative (Negative); Leukocyte Esterase-Dipstick 100 /ul (Negative); Nitrite-Dipstick Negative (Negative); Occult Blood-Urine Negative /ul (Negative); Protein-Dipstick Negative (Negative); Urine Bilirubin Dipstick Negative (Negative); Urine Clarity Clear (Clear); Urine Urobilinogen Normal (Normal)
[2021-02-06 18:04] LABS: T4 Free Direct 0.88 ng/dL (0.76-1.46); Thyroid Stim Hormone (TSH) 3.28 uIU/mL (0.358-3.74)
[2021-02-06 18:09] LABS: Squamous Epithelial Cells - UA 0-5 SEEN /hpf (5-10); White Blood Cells 0-5 SEEN /hpf (0-5)
== END ==
LOC: MFPLAB 14:34
PROVIDERS: PCP Family Medicine; Referring Provider Family Medicine; Visit Provider Family Medicine
DX: E03.8 Other specified hypothyroidism (principal); Z72.0 Tobacco use
CPT/HCPCS: 36415; 81001; 84439; 84443

== ENCOUNTER 2021-09-04 13:11 | Outpatient (CLI) | payer SELFPAY | END 2021-09-04 23:59 | disposition home or self-care (01) | LOC: MTLAB 13:13 | PROVIDERS: PCP Family Medicine; Referring Provider Family Medicine; Visit Provider Family Medicine | DX: E03.8 Other specified hypothyroidism (principal); Z72.0 Tobacco use ==

== ENCOUNTER → 2022-05-23 | Outpatient (CLI) | payer SELFPAY ==
[2022-05-23 13:36] LABS: Bacteria 0 SEEN /hpf (None Seen); Mucous, Urine 0 SEEN /hpf (<or=2+); Red Blood Cells-Urine 0 SEEN /hpf (0-5); Squamous Epithelial Cells - UA 0 SEEN /hpf (5-10); White Blood Cells 0 SEEN /hpf (0-5)
[2022-05-23 15:31] LABS: Absolute Neutrophil Count 6.4 X10^3/uL (2.0-7.7); Basophil# 0.04 X10^3/uL; Basophil% 0.4 % (0-1); Hematocrit 45.6 % (37-47); Hemoglobin 14.5 g/dL (12.0-15.0); Lymphocyte % 25.4 % (19-41); Mean Corp Hgb Conc 31.8 g/dL (32-36); Mean Corpuscular Hgb 29.4 pg (27.0-32.0); Mean Corpuscular Volume 92.3 fL (81-99); Mean Platelet Vol. 10.4 fl (6.2-12.0); Monocyte% 7.1 % (0-10); NRBC Flagged by Analyzer 0 % (0-5); Neutrophil # 6.37 X10^3/uL (2.7-7.7); Neutrophil % 64.9 % (47-70); Platelet Count 303 K/mm3 (150-450); RBC Distribution Width CV 13.6 % (11.6-14.6); RBC Distribution Width SD 46.5 fl (35.1-43.9); Red Blood Count 4.94 M/mm3 (4.2-5.4); White Blood Count 9.8 K/mm3 (4.4-11.0)
[2022-05-23 15:36] LABS: Color, Urine Yellow (Yellow); Glucose, Dipstick Normal (Normal); Ketone-Dipstick Negative (Negative); Leukocyte Esterase-Dipstick 25 /ul (Negative); Nitrite-Dipstick Negative (Negative); Occult Blood-Urine Negative /ul (Negative); Protein-Dipstick Negative (Negative); Urine Bilirubin Dipstick Negative (Negative); Urine Clarity Clear (Clear); Urine Urobilinogen Normal (Normal)
[2022-05-23 15:54] LABS: ALB/GLOB Ratio 1.1 RATIO (0.9-2.4); AST(SGOT) 16 U/L (15-37); Alanine Aminotransfer ALT/SGPT 31 U/L (13-56); Albumin, Serum 3.9 g/dL (3.2-5.0); Alkaline Phosphatase 82 U/L (45-117); Anion Gap 4 (5-15); BUN 10 mg/dL (7-18); BUN/Creat Ratio 12.7 RATIO (10-20); Calcium,Total 9.3 mg/dL (8.5-10.1); Chloride 108 mmol/L (98-107); Creatinine, Serum 0.79 mg/dL (0.55-1.02); EST Glomerular Filtration Rate 79 mL/min (>60); Est Glom Filt Rate - Afr Amer 95 mL/min (>60); Globulin 3.5 g/dL (2.2-4.2); Glucose 90 mg/dL (74-106); Protein, Total 7.4 g/dL (6.4-8.2); Sodium Level 141 mmol/L (136-145); T4 Free Direct 0.88 ng/dL (0.76-1.46); Thyroid Stim Hormone (TSH) 5.82 uIU/mL (0.358-3.74)
== END | disposition home or self-care (01) ==
PROVIDERS: PCP Family Medicine; Referring Provider Family Medicine; Visit Provider Family Medicine
DX: E03.8 Other specified hypothyroidism (principal); Z72.0 Tobacco use
CPT/HCPCS: 36415; 80053; 81001; 84439; 84443; 85025

== ENCOUNTER 2023-09-05 05:09 | Emergency (ER) | payer SELFPAY ==
[2023-09-05 05:09] VITALS: BP 171/78; PULSE 60; RESP 20; TEMP 36.3; O2SAT 100; BMI 33.3
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
[2023-09-05 05:15] VITALS: BP 172/80
[2023-09-05] MEDS: traMADol 50 MG Tablet PO (05:23)
[2023-09-05] MEDS: Naproxen 250 MG Tablet 500 MG PO (05:23)
[2023-09-05 06:00] VITALS: BP 168/75; PULSE 71; RESP 18; TEMP 36.4; O2SAT 97
== END 2023-09-05 05:50 | disposition home or self-care (01) ==
LOC: ED 05:18
PROVIDERS: Emergency Provider Emergency Medicine; PCP Family Medicine; Visit Provider Emergency Medicine
DX: T24.211A Burn of second degree of right thigh, initial encounter (principal); T23.231A Burn of second degree of multiple right fingers (nail), not including thumb, initial encounter; F17.210 Nicotine dependence, cigarettes, uncomplicated; E07.9 Disorder of thyroid, unspecified; X00.8XXA Other exposure to uncontrolled fire in building or structure, initial encounter; Y92.018 Other place in single-family (private) house as the place of occurrence of the external cause
CPT/HCPCS: 99283

== ENCOUNTER → 2024-01-20 | Outpatient (CLI) | payer SELFPAY ==
[2024-01-20 15:20] LABS: Absolute Lymphocyte Count 2.53 X10^3/uL (0.83-4.51); Absolute Neutrophil Count 7.3 X10^3/uL (2.0-7.7); Basophil# 0.07 X10^3/uL; Basophil% 0.6 % (0-1); Eosinophil# 0.34 X10^3/uL; Eosinophils% 3.1 % (0-5); Hematocrit 45.4 % (37-47); Lymphocyte # 2.53 X10^3/ul (0.83-4.51); Mean Corp Hgb Conc 30.8 g/dL (32-36); Mean Corpuscular Hgb 28.5 pg (27.0-32.0); Mean Corpuscular Volume 92.5 fL (81-99); Mean Platelet Vol. 10.4 fl (6.2-12.0); Monocyte# 0.77 X10^3/uL; NRBC Flagged by Analyzer 0 % (0-5); Neutrophil # 7.25 X10^3/uL (2.7-7.7); Platelet Count 298 K/mm3 (150-450); RBC Distribution Width CV 14.4 % (11.6-14.6); RBC Distribution Width SD 49.3 fl (35.1-43.9); Red Blood Count 4.91 M/mm3 (4.2-5.4)
[2024-01-20 16:10] LABS: ALB/GLOB Ratio 0.9 RATIO (0.9-2.4); AST(SGOT) 13 U/L (15-37); Alanine Aminotransfer ALT/SGPT 21 U/L (13-56); Albumin, Serum 3.7 g/dL (3.2-5.0); Alkaline Phosphatase 83 U/L (45-117); Anion Gap 6 (5-15); BUN 13 mg/dL (7-18); BUN/Creat Ratio 17.2 RATIO (10-20); Chloride 107 mmol/L (98-107); Cholesterol 192 mg/dL (200); Creatinine, Serum 0.76 mg/dL (0.55-1.02); EST Glomerular Filtration Rate 82 mL/min (>60); Est Glom Filt Rate - Afr Amer 100 mL/min (>60); Globulin 3.9 g/dL (2.2-4.2); Glucose 93 mg/dL (74-106); High Density Lipoprotein 44 mg/dL; Protein, Total 7.6 g/dL (6.4-8.2); Sodium Level 138 mmol/L (136-145); T4 Free Direct 0.84 ng/dL (0.76-1.46); Triglycerides 192 mg/dL; Very Low Density Lipoprotein 38 mg/dL (5-40)
== END | disposition home or self-care (01) ==
LOC: MFPLAB 11:18
PROVIDERS: PCP Family Medicine; Visit Provider Family Medicine
DX: E03.8 Other specified hypothyroidism (principal); E78.5 Hyperlipidemia, unspecified
CPT/HCPCS: 36415; 80053; 80061; 84439; 84443; 85025

== ENCOUNTER → 2024-06-03 | Outpatient (CLI) | payer SELFPAY ==
[2024-06-03 15:23] LABS: Absolute Lymphocyte Count 2.85 X10^3/uL (0.83-4.51); Absolute Neutrophil Count 6.2 X10^3/uL (2.0-7.7); Basophil# 0.06 X10^3/uL; Basophil% 0.6 % (0-1); Hematocrit 46.9 % (37-47); Hemoglobin 14.5 g/dL (12.0-15.0); Lymphocyte # 2.85 X10^3/ul (0.83-4.51); Lymphocyte % 28.1 % (19-41); Mean Corp Hgb Conc 30.9 g/dL (32-36); Mean Corpuscular Hgb 29.1 pg (27.0-32.0); Mean Platelet Vol. 10.2 fl (6.2-12.0); Monocyte# 0.78 X10^3/uL; Monocyte% 7.7 % (0-10); NRBC Flagged by Analyzer 0 % (0-5); Neutrophil # 6.23 X10^3/uL (2.7-7.7); Neutrophil % 61.3 % (47-70); Platelet Count 316 K/mm3 (150-450); RBC Distribution Width CV 13.8 % (11.6-14.6); Red Blood Count 4.99 M/mm3 (4.2-5.4); White Blood Count 10.2 K/mm3 (4.4-11.0)
[2024-06-03 15:57] LABS: AST(SGOT) 13 U/L (15-37); Alanine Aminotransfer ALT/SGPT 21 U/L (13-56); Alkaline Phosphatase 91 U/L (45-117); Anion Gap 1 (5-15); BUN 14 mg/dL (7-18); BUN/Creat Ratio 16.3 RATIO (10-20); Calcium,Total 9.6 mg/dL (8.5-10.1); Chloride 108 mmol/L (98-107); Cholesterol 220 mg/dL (200); Creatinine, Serum 0.86 mg/dL (0.55-1.02); EST Glomerular Filtration Rate 71 mL/min (>60); Est Glom Filt Rate - Afr Amer 85 mL/min (>60); Glucose 74 mg/dL (74-106); High Density Lipoprotein 53 mg/dL; Potassium 4.4 mmol/L (3.5-5.1); Sodium Level 138 mmol/L (136-145); T4 Free Direct 0.98 ng/dL (0.76-1.46); Triglycerides 133 mg/dL; Very Low Density Lipoprotein 27 mg/dL (5-40)
== END | disposition home or self-care (01) ==
PROVIDERS: PCP Family Medicine; Referring Provider Family Medicine; Visit Provider Family Medicine
DX: E03.8 Other specified hypothyroidism (principal)

== ENCOUNTER → 2025-01-13 | Outpatient (CLI) | payer SELFPAY ==
[2025-01-13 17:42] LABS: Hematocrit 47.0 % (37-47); Hemoglobin 15.3 g/dL (12.0-15.0); Immature Granulocytes Count 0.050 X10^3/uL (0.0-0.0); Mean Corp Hgb Conc 32.6 g/dL (32-36); Mean Corpuscular Volume 91.3 fL (81-99); Mean Platelet Vol. 10.6 fl (6.2-12.0); NRBC Flagged by Analyzer 0 % (0-5); Platelet Count 318 K/mm3 (150-450); RBC Distribution Width CV 13.5 % (11.6-14.6); RBC Distribution Width SD 45.8 fl (35.1-43.9); Red Blood Count 5.15 M/mm3 (4.2-5.4); White Blood Count 10.9 K/mm3 (4.4-11.0)
[2025-01-13 18:49] LABS: AST(SGOT) 18 U/L (<=31); Alanine Aminotransfer ALT/SGPT 13 U/L (<=34); Albumin, Serum 4.5 g/dL (3.4-4.8); Alkaline Phosphatase 85 U/L (35-104); Anion Gap 14 (5-15); BUN 13 mg/dL (4-19); BUN/Creat Ratio 15.0 RATIO (10-20); Calcium,Total 9.8 mg/dL (7.6-11.0); Carbon Dioxide 22.1 mmol/L (21.0-32.0); Chloride 104 mmol/L (98-108); Globulin 3.3 g/dL (2.2-4.2); Glucose 86 mg/dL (70-99); Potassium 4.2 mmol/L (3.3-5.1)
== END | disposition home or self-care (01) ==
LOC: MFPLAB 15:18
PROVIDERS: PCP Family Medicine; Referring Provider Family Medicine; Visit Provider Family Medicine
DX: E03.8 Other specified hypothyroidism (principal); E06.3 Autoimmune thyroiditis
CPT/HCPCS: 36415; 80053; 84439; 84443; 85025